=== PATIENT | female | born 1985 | race Caucasian/White ===

== ENCOUNTER 2023-01-01 14:02 | Emergency (ER) | payer OTHER, SELFPAY ==
[2023-01-01 14:17] VITALS: BP 153/101; PULSE 100; RESP 18; TEMP 36.7; O2SAT 98; BMI 33.1
--- NOTE | 2023-01-01 14:18 | ED.GENADULT ---
HPI - General Adult General Chief complaint: General Medical Stated complaint: chest pain sob Time Seen by Provider: 01/01/23 17:27 Source: patient Mode of arrival: ambulatory Limitations: no limitations History of Present Illness HPI narrative: Patient with multiple symptoms chest pain palpitation been to [facility] seen organisational psychologist admitted in [facility] on 12/21 discharged 12/25 with workup negative comes here with left-sided pain going to the left arm since last night with increased anxiety with dizziness supposed to see organisational psychologist as a follow-up complaining of shoulder pain numbness had a cardiac echo and Holter monitoring is still not satisfied denies symptoms secondary to anxiety but patient feels anxious when she arrived in the ER on amlodipine 2.5 mg daily Related Data Allergies Allergy/AdvReac Type Severity Reaction Status Date / Time No Known Allergies Allergy Verified 01/01/23 14:19 Review of Systems Review of Systems: Yes all other systems are reviewed and are negative PMFSH Social History Social History Advance Directives: No Advance Directives Information Provided: No Advance Directives on File: No Physical Exam ED Vital Signs: Vital Signs - 24 hr 01/01/23 14:17 01/01/23 17:52 01/01/23 17:53 Temperature 98.1 F Pulse Rate 100 113 H 111 H Respiratory Rate 18 18 18 Blood Pressure 153/101 H 161/103 H 150/99 H Pulse Oximetry 98 Oxygen Delivery Method Room Air 01/01/23 17:53 01/01/23 18:23 Temperature Pulse Rate 113 H 108 H Respiratory Rate 18 18 Blood Pressure 159/97 H 141/97 H Pulse Oximetry 97 Oxygen Delivery Method Room Air BMI result Body Mass Index 33.1 Appearance: Alert. Oriented X3. No acute distress. Very anxious Eyes: PERRLA, No Nystagmus ENT: Pharynx normal. Oral Mucosa moist Neck: Normal inspection. Neck supple. CVS: Regular rate and rhythm tachycardia++ Pulses normal. Respiratory: No respiratory distress. Equal air entry bilateral, no wheezing/rales/rhonchi Abdomen: Soft and nontender. Bowel sounds are present, no mass palpable, Skin: Skin warm and dry. Normal skin color. Normal skin turgor. Extremities: No lower extremity edema. No calf tenderness Neuro: Oriented X 3. No motor deficit. Course Course Course Narrative: EK yold femmaciel with chest pain off and on for a month with left arm tintling mutliple admission at [facility]. last admissions in [facility] had normal echocardiogram. labs and EKG ordered Medications Administered Discontinued Medications Generic Name Dose Route Start Last Admin Trade Name Saulq PRN Reason Stop Dose Admin Metoprolol Tartrate 25 mg 01/01/23 17:53 01/01/23 18:20 Metoprolol Tartrate 25 Mg Tablet PO 01/01/23 17:54 25 mg ONCE ONE Administration Protocol Medical Decision Making Medical Decision Making MDM Narrative: Patient with symptoms likely from anxiety no orthostatic hypotension labs are stable cardiogram showed sinus tachycardia patient clinically seems very anxious patient does not like the diagnosis of anxiety asking for more testing to be done which is not possible and not indicated in our ER will discharge patient home advised to follow up with her own organisational psychologist/PCP On further evaluation patient been prescribed Ativan by her PCP 2 times in last 10 days also with prescribed Ativan last year at this time patient's vitals are stable heart score of 0 will discharge patient home Lab Data [facility] Lab Attestation statement: I reviewed the patient's lab results. 01/01/23 14:59 01/01/23 15:00 Labs: Lab Results 01/01/23 01/01/23 01/01/23 Range/Units 14:59 15:00 15:00 WBC 5.6 (4.8-10.8) X10*3/uL RBC 4.76 (4.20-5.50) X10*6/uL Hgb 12.7 (12.0-16.0) g/dl Hct 37.7 (37.0-47.0) % MCV 79.2 L (80.0-98.0) fL MCH 26.7 L (27.0-33.0) pg MCHC 33.7 (31.0-35.0) g/dl RDW 14.5 (11.0-16.0) % Plt Count 170 (160-400) X10*3/uL MPV Not Reportable Immature Gran % (Auto) 0.2 (0.0-0.4) % Neut % (Auto) 69.2 (45-73) % Lymph % (Auto) 25.1 (20-40) % Worth % (Auto) 4.6 (2-11) % Eos % (Auto) 0.7 (0-4) % Baso % (Auto) 0.2 (0-2) % Lymph # (Auto) 1.4 (1.2-4.9) X10*3/uL Worth # (Auto) 0.3 (0.1-1.2) X10*3/uL Eos # (Auto) 0.0 (0.0-0.4) X10*3/uL Baso # (Auto) 0.0 (0.0-0.2) X10*3/uL Abs Immat Gran (auto) 0.01 (0.00-0.03) X10*3/uL Absolute Neuts (auto) 3.9 (2.0-8.3) x10*3/uL Absolute Nucleated RBC 0.000 (0.0-0.012) X10*3/uL Nucleated RBC % (auto) 0.0 (0.0-0.2) /100WBC Smear Tech's Comments VERIFIED PT (10.0-13.1) SEC INR (0.9-1.1) APTT (26.0-36.4) SEC Sodium 139 (135-145) mmol/L Potassium 4.7 (3.3-5.1) mmol/L Chloride 106 (96-108) mmol/L Carbon Dioxide 23 (22-29) mmol/L Anion Gap 15 (12-20) BUN 14 (9-16) mg/dL Creatinine 0.84 (0.5-1.4) mg/dL Estim Creat Clear Calc 104.3 Estimated GFR > 60 Random Glucose 105 (60-115) mg/dL Calcium 10.0 (8.4-10.2) mg/dL Total Bilirubin 0.5 (0.0-1.0) mg/dL AST 32 H (5-31) U/L ALT 20 (0-31) U/L Alkaline Phosphatase 84 (39-117) U/L Troponin I High Sens < 2.7 (<3.5-17.0) ng/L B-Natriuretic Peptide (<100) pg/mL Total Protein 8.5 H (6.5-8.0) g/dL Albumin 4.5 (3.5-5.0) g/dL 01/01/23 01/01/23 Range/Units 15:00 16:03 WBC (4.8-10.8) X10*3/uL RBC (4.20-5.50) X10*6/uL Hgb (12.0-16.0) g/dl Hct (37.0-47.0) % MCV (80.0-98.0) fL MCH (27.0-33.0) pg MCHC (31.0-35.0) g/dl RDW (11.0-16.0) % Plt Count (160-400) X10*3/uL MPV Immature Gran % (Auto) (0.0-0.4) % Neut % (Auto) (45-73) % Lymph % (Auto) (20-40) % Worth % (Auto) (2-11) % Eos % (Auto) (0-4) % Baso % (Auto) (0-2) % Lymph # (Auto) (1.2-4.9) X10*3/uL Worth # (Auto) (0.1-1.2) X10*3/uL Eos # (Auto) (0.0-0.4) X10*3/uL Baso # (Auto) (0.0-0.2) X10*3/uL Abs Immat Gran (auto) (0.00-0.03) X10*3/uL Absolute Neuts (auto) (2.0-8.3) x10*3/uL Absolute Nucleated RBC (0.0-0.012) X10*3/uL Nucleated RBC % (auto) (0.0-0.2) /100WBC Smear Tech's Comments PT 11.5 (10.0-13.1) SEC INR 1.0 (0.9-1.1) APTT 32.2 (26.0-36.4) SEC Sodium (135-145) mmol/L Potassium (3.3-5.1) mmol/L Chloride (96-108) mmol/L Carbon Dioxide (22-29) mmol/L Anion Gap (12-20) BUN (9-16) mg/dL Creatinine (0.5-1.4) mg/dL Estim Creat Clear Calc Estimated GFR Random Glucose (60-115) mg/dL Calcium (8.4-10.2) mg/dL Total Bilirubin (0.0-1.0) mg/dL AST (5-31) U/L ALT (0-31) U/L Alkaline Phosphatase (39-117) U/L Troponin I High Sens (<3.5-17.0) ng/L B-Natriuretic Peptide < 10 (<100) pg/mL Total Protein (6.5-8.0) g/dL Albumin (3.5-5.0) g/dL Independent Interpretation I performed an independent interpretation of an: EKG Interpretation: Sinus tachycardia heart rate 103 beats per min normal interval normal axis no acute ST-T change and no acute ischemia Discharge Plan Discharge Clinical Impression: Chest pain, Anxiety Patient Disposition: Home, Self-Care Instructions: Chest Pain (ED), Anxiety (ED) Additional Instructions: Your cardiac workup at this time is negative for any acute coronary event You have already seen organisational psychologist and PCP please follow-up with them for further evaluation Your symptoms are likely from anxiety and palpitation Continue amlodipine as prescribed Ativan for sleep and anxiety as prescribed by her PCP Interventions: ED Discharge Assessment Last Done: 01/01/23 18:35 Discharge Date/Time: 01/01/23 18:36
--- NOTE | 2023-01-01 14:19 | ECG_ITS ---
Test Reason : chest pain Blood Pressure : / mmHG Vent. Rate : 103 BPM Atrial Rate : 103 BPM P-R Int : 156 ms QRS Dur : 080 ms QT Int : 330 ms P-R-T Axes : 015 035 -06 degrees QTc Int : 432 ms Sinus tachycardia Otherwise normal ECG No previous ECGs available Referred By: Eber Plaza Electronically Signed By:Connor Moralez
[2023-01-01 15:08] LABS: Basophils Percent Auto 0.2 % (0-2); Imm Gran Abs Auto 0.01 X10*3/uL (0.00-0.03); Imm Gran Pct Auto 0.2 % (0.0-0.4); MANUAL DIFF FLAG SCAN; Mean Corpuscular HGB Conc 33.7 g/dl (31.0-35.0); Mean Corpuscular Hemoglobin 26.7 pg (27.0-33.0); Monocytes Absolute Auto 0.3 X10*3/uL (0.1-1.2); PLT CLUMP 1; SCAN SMEAR FLAG 1
[2023-01-01 15:09] LABS: Eosinophils Percent Auto 0.7 % (0-4); Hematocrit 37.7 % (37.0-47.0); Hemoglobin 12.7 g/dl (12.0-16.0); Lymphocytes Absolute Auto 1.4 X10*3/uL (1.2-4.9); Lymphocytes Percent Auto 25.1 % (20-40); Mean Corpuscular Volume 79.2 fL (80.0-98.0); Monocytes Percent Auto 4.6 % (2-11); Neutrophils Absolute Auto 3.9 x10*3/uL (2.0-8.3); Neutrophils Percent Auto 69.2 % (45-73); Red Blood Count 4.76 X10*6/uL (4.20-5.50); Red Cell Distribution Width 14.5 % (11.0-16.0)
[2023-01-01 15:26] LABS: Platelet Count 170 X10*3/uL (160-400); White Blood Count 5.6 X10*3/uL (4.8-10.8)
[2023-01-01 15:30] LABS: SLIDE REVIEW VERIFIED
[2023-01-01 15:32] LABS: B Type Natriuretic Peptide < 10 pg/mL (<100)
[2023-01-01 15:33] LABS: Alanine Aminotransferase 20 U/L (0-31); Albumin Level 4.5 g/dL (3.5-5.0); Alkaline Phosphatase 84 U/L (39-117); Anion Gap 15 (12-20); Aspartate Amino Transferase 32 U/L (5-31); Bilirubin Total 0.5 mg/dL (0.0-1.0); Blood Urea Nitrogen 14 mg/dL (9-16); Carbon Dioxide 23 mmol/L (22-29); Chloride 106 mmol/L (96-108); Creatinine Clr Calc Pharmacy 104.3; Estimated Glomerular Filt Rate > 60; Glucose Random 105 mg/dL (60-115); Potassium 4.7 mmol/L (3.3-5.1); Sodium 139 mmol/L (135-145); Total Protein 8.5 g/dL (6.5-8.0); Troponin-I High Sensitivity < 2.7 ng/L (<3.5-17.0)
[2023-01-01 16:17] LABS: Prothrombin Time 11.5 SEC (10.0-13.1)
[2023-01-01 16:20] LABS: Partial Thromboplastin Time 32.2 SEC (26.0-36.4)
[2023-01-01 17:52] VITALS: BP 161/103; PULSE 113; RESP 18
[2023-01-01 17:53] VITALS: BP 150/99; BP 159/97; PULSE 111; PULSE 113; RESP 18
[2023-01-01] MEDS: Metoprolol Tartrate 25 MG TABLET PO (18:20)
[2023-01-01 18:23] VITALS: BP 141/97; PULSE 108; RESP 18; O2SAT 97
--- NOTE | 2023-01-01 18:34 | PC.NURSE ---
pt tearful and upset following conversation with MD. pt reporting nothing is being done . pt a client of [facility] where she recently was admitted for 3 days observation without dx for same problems. explained to pt that her lab work and EKG was unremarkable, that if she is seeing a home manager she needs to continue to follow up with them.
== END 2023-01-01 18:36 | disposition home or self-care (01) ==
PROVIDERS: Physician Assistant; Emergency Provider Internal Medicine; PCP Family Medicine
DX: R07.89 Other chest pain (principal); R00.2 Palpitations; R06.02 Shortness of breath; R00.0 Tachycardia, unspecified; F41.1 Generalized anxiety disorder; F43.0 Acute stress reaction; Z79.899 Other long term (current) drug therapy
CPT/HCPCS: 36415; 80053; 83880; 84484; 85025; 85610; 85730; 93005; 99283; 99284